=== PATIENT | female | born 1990 | race Hispanic/Latino ===

== ENCOUNTER 2020-04-18 14:35 | Emergency (ER) | payer SELFPAY ==
[2020-04-18] MEDS ORDERED: CEFTRIAXONE/SWI 1gm 1 GM/10 ML SYR ONE (15:34)
[2020-04-18] MEDS ORDERED: NA CHLORIDE 0.9% 1,000 ML ONE (15:34)
[2020-04-18 15:35] LABS: Absolute Lymphocytes (CBC) 0.9 K/uL (0.7-4.9); Basophils % 0.5 % (0-1.3); Hematocrit 37.7 % (36.0-45.0); Lymphocytes % 12.2 % (15.3-44.8); MPV 8.7 fL (7.6-11.3); RBC Red Blood Cell Count 4.48 M/uL (3.86-4.86)
[2020-04-18 15:53] LABS: BUN Blood Urea Nitrogen 9 mg/dL (7-18); Bicarbonate 28 mmol/L (21-32); Glucose Level 89 mg/dL (74-106); Potassium 3.7 mmol/L (3.5-5.1); Sodium Level 137 mmol/L (136-145)
--- NOTE | 2020-04-18 16:01 | RAD REPORT ---
EXAM DESCRIPTION: CTAbdomen Pelvis W Contrast - 04/18/2020 3:51 pm CLINICAL HISTORY: Abdominal pain. pyelonephritis COMPARISON: No comparisons TECHNIQUE: Biphasic CT imaging of the abdomen and pelvis was performed with 100 ml non-ionic IV cont rast. All CT scans are performed using dose optimization technique as appropriate and may include automated exposure control or mA/KV adjustment according to patient size. FINDINGS: The lung bases are clear.Small hiatal hernia. The liver, spleen, pancreas, adrenal glands and kidneys are within normal limits. Cholelithiasis. No bowel obstruction, free air, free fluid or abscess. The appendix is normal. No evidence of signi ficant lymphadenopathy. No suspicious bony findings. IMPRESSION: Cholelithiasis.
[2020-04-18 16:10] LABS: Urine Bacteria >50 /HPF (<20); Urine Culture Reflex Order NOT NEEDED
--- NOTE | 2020-04-18 16:13 | ER ---
Nurse's Notes [facility] Name: Heather Irvin Age: 29 yrs Sex: Female : 1990 Arrival Date: 04/18/2020 Time: 14:39 Bed 5 Private MD: Diagnosis: Urinary tract infection, site not specified Presentation: 04/18 14:51 Chief complaint: Patient states: low back pain, chills, burning with urination and ss blood in urine that began yesterday. Coronavirus screen: Client denies travel out of the [place] in the last 14 days. Ebola Screen: Patient denies exposure to infectious person. Patient denies travel to an Ebola-affected area in the 21 days before illness onset. Initial Sepsis Screen: Does the patient meet any 2 criteria? No. Patient's initial sepsis screen is negative. Does the patient have a suspected source of infection? No. Patient's initial sepsis screen is negative. Risk Assessment: Do you want to hurt yourself or someone else? Patient reports no desire to harm self or others. Onset of symptoms was April 17, 2020. 14:51 Method Of Arrival: Ambulatory ss 14:51 Acuity: SHAHBAZ 3 ss NURSE WOUND CARE: 16:42 LMP 04/07/2020 ll2 Historical: - Allergies: 14:53 No Known Allergies; ss - Home Meds: 14:53 None [Active]; ss - PMHx: 14:53 None; ss - PSHx: 14:53 None; ss - Immunization history:: Adult Immunizations up to date. - Social history:: Smoking status: Patient denies any tobacco usage or history of. Screenin:33 Abuse screen: Denies threats or abuse. Nutritional screening: No deficits noted. ll2 Tuberculosis screening: No symptoms or risk factors identified. Fall Risk IV access (20 points). Ambulatory Aid- None/Bed Rest/Nurse Assist (0 pts). Gait- Normal/Bed Rest/Wheelchair (0 pts) Mental Status- Oriented to own ability (0 pts). Total Holden Fall Scale indicates No Risk (0-24 pts). Assessment: 15:30 General: Appears in no apparent distress. Behavior is calm, cooperative, appropriate ll2 for age. Pain: Complains of pain in right low back Pain at worst was 10 out of 10 on a pain scale. Quality of pain is described as aching, radiating, Pain began 2-3 days ago. Is continuous, Alleviated by rest. Neuro: Level of Consciousness is awake, alert, obeys commands, Oriented to person, place, time, situation. Cardiovascular: Capillary refill < 3 seconds Patient's skin is warm and dry. Respiratory: Airway is patent Respiratory effort is even, unlabored, Respiratory pattern is regular, symmetrical. GI: Abd is soft X 4 quads Reports lower abdominal pain. : Reports burning with urination, since last 4 days urgency, urinary frequency. EENT: No signs and/or symptoms were reported regarding the EENT system. Derm: Skin is intact, is healthy with good turgor, Skin is dry, Skin is pink, warm \T\ dry. Skin temperature is warm. Musculoskeletal: Circulation, motion, and sensation intact. Range of motion: intact in all extremities. Vital Signs: 14:51 BP 133 / 98; Pulse 99; Resp 14; Temp 99.7(TE); Pulse Ox 99% on R/A; Weight 99.79 kg; ss Height 5 ft. 6 in. (167.64 cm); Pain 2/10; 15:33 BP 127 / 90; Pulse 86; Resp 15; Temp 99; Pulse Ox 100% on R/A; Pain 4/10; ll2 16:00 BP 124 / 80; Pulse 94; Resp 14; Temp 98.9; Pulse Ox 99% on R/A; ll2 14:51 Body Mass Index 35.51 (99.79 kg, 167.64 cm) ED Course: 14:39 Patient arrived in ED. mr 14:52 Triage completed. ss 14:53 Arm band placed on right wrist. ss 15:04 Sheryl Caldera FNP-C is PHCP. kb 15:04 Nick Blanton MD is Attending Physician. kb 15:20 Nabeel Dinero, SARAH is Primary Nurse. ll1 15:25 Initial lab(s) drawn, by me, sent to lab. Inserted saline lock: 20 gauge in right kj1 antecubital area, using aseptic technique. Blood collected. 15:51 CT Abd/Pelvis - IV Contrast Only In Process Unspecified. EDMS 15:59 Patient has correct armband on for positive identification. Bed in low position. Call ll2 light in reach. Side rails up X 1. 16:05 CT completed. pt became nauseous \T\ threw up post ct exam. pt did stated she ate a bq tortilla prior to going to the er. Patient moved back from CT. 16:42 No provider procedures requiring assistance completed. IV discontinued, intact, ll2 bleeding controlled, No redness/swelling at site. Pressure dressing applied. Administered Medications: 15:35 Drug: NS 0.9% 1000 ml Route: IV; Rate: 1000 ml; Site: right antecubital; ll2 15:35 Drug: Rocephin 1 grams Route: IV; Rate: calculated rate; Site: right antecubital; ll2 Outcome: 16:12 Discharge ordered by MD. kb 16:31 Patient left the ED. ll1 16:31 Discharged to home ambulatory. ll2 16:31 Condition: stable 16:31 Discharge instructions given to patient, Instructed on discharge instructions, follow up and referral plans. medication usage, Demonstrated understanding of instructions, follow-up care, medications, Prescriptions given X 2. Addendum: 04/21/2020 11:16 Addendum: Culture Results: Positive urine culture. No further action required. Bacteria s s sensitive to prescribed antibiotic. Signatures: Dispatcher [employer] EDMS Sheryl Caldera, ANALYTICS DIRECTOR-C ANALYTICS DIRECTOR-Ckb Paola Russ Betty Demi Huffman RN RN ss Jackson, Kandis kj1 Lorie Gooden RN RN ll2 Nabeel Dinero RN RN ll1 Corrections: (The following items were deleted from the chart) 04/18 16:44 16:42 Discharged to home ambulatory, ll2 ll2 16:44 16:42 Condition: stable ll2 ll2 16:44 16:42 Discharge instructions given to patient, Instructed on discharge instructions, ll2 follow up and referral plans. medication usage, Demonstrated understanding of instructions, follow-up care, medications, Prescriptions given X 2, ll2
--- NOTE | 2020-04-18 16:13 | EDPHYS ---
Physician Documentation [facility] Name: Heather Irvin Age: 29 yrs Sex: Female : 1990 Arrival Date: 04/18/2020 Time: 14:39 Bed 5 Private MD: ED Physician Nick Blanton HPI: 04/18 15:39 This 29 yrs old Female presents to ER via Ambulatory with complaints of Back kb Pain, Urinary Problem. 15:39 The patient presents with urinary symptoms, dysuria, frequency, hematuria. Onset: The kb symptoms/episode began/occurred 4 day(s) ago. Modifying factors: The symptoms are alleviated by nothing, the symptoms are aggravated by urinating. Associated signs and symptoms: Pertinent positives: dysuria, fever, hematuria, urinary frequency. Severity of symptoms: At their worst the symptoms were moderate, in the emergency department the symptoms are unchanged. The patient has not experienced similar symptoms in the past. The patient has not recently seen a physician. Pt reports she started having frequency and dysuria 4 days ago. Since then those symptoms have gotten worse and now she has fever, chills, flank pain, and hematuria. 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 - Social history:: Smoking status: Patient denies any tobacco usage or history of. ROS: 15:38 Cardiovascular: Negative for chest pain, palpitations, and edema, Respiratory: Negative kb for shortness of breath, cough, wheezing, and pleuritic chest pain, Abdomen/GI: Negative for abdominal pain, nausea, vomiting, diarrhea, and constipation, MS/Extremity: Negative for injury and deformity, Skin: Negative for injury, rash, and discoloration, Neuro: Negative for headache, weakness, numbness, tingling, and seizure. 15:38 Constitutional: Positive for chills, fever, malaise. 15:38 : Positive for urinary symptoms, flank pain, urinary frequency, hematuria, burning with urination. Exam: 15:38 Constitutional: This is a well developed, well nourished patient who is awake, alert, kb and in no acute distress. Head/Face: Normocephalic, atraumatic. Chest/axilla: Normal chest wall appearance and motion. Nontender with no deformity. No lesions are appreciated. Cardiovascular: Regular rate and rhythm with a normal S1 and S2. No gallops, murmurs, or rubs. Normal PMI, no JVD. No pulse deficits. Respiratory: Lungs have equal breath sounds bilaterally, clear to auscultation and percussion. No rales, rhonchi or wheezes noted. No increased work of breathing, no retractions or nasal flaring. Abdomen/GI: Soft, non-tender, with normal bowel sounds. No distension or tympany. No guarding or rebound. No evidence of tenderness throughout. Skin: Warm, dry with normal turgor. Normal color with no rashes, no lesions, and no evidence of cellulitis. MS/ Extremity: Pulses equal, no cyanosis. Neurovascular intact. Full, normal range of motion. Neuro: Awake and alert, GCS 15, oriented to person, place, time, and situation. Cranial nerves II-XII grossly intact. Motor strength 5/5 in all extremities. Sensory grossly intact. Cerebellar exam normal. Normal gait. 15:38 Back: CVA tenderness, that is mild, is noted on the right. Vital Signs: 14:51 BP 133 / 98; Pulse 99; Resp 14; Temp 99.7(TE); Pulse Ox 99% on R/A; Weight 99.79 kg; ss Height 5 ft. 6 in. (167.64 cm); Pain 2/10; 15:33 BP 127 / 90; Pulse 86; Resp 15; Temp 99; Pulse Ox 100% on R/A; Pain 4/10; ll2 16:00 BP 124 / 80; Pulse 94; Resp 14; Temp 98.9; Pulse Ox 99% on R/A; ll2 14:51 Body Mass Index 35.51 (99.79 kg, 167.64 cm) ss MDM: 15:12 Patient medically screened. kb 15:38 Data reviewed: vital signs, nurses notes. Data interpreted: Pulse oximetry: on room air kb is 100 %. Interpretation: normal. 16:06 Counseling: I had a detailed discussion with the patient and/or guardian regarding: the kb historical points, exam findings, and any diagnostic results supporting the discharge/admit diagnosis, lab results, radiology results, the need for outpatient follow up, a family practitioner, to return to the emergency department if symptoms worsen or persist or if there are any questions or concerns that arise at home. 04/18 15:09 Order name: Urine Dipstick--Ancillary (enter results); Complete Time: 16:28 eb 04/18 15:09 Order name: Urine --Ancillary (enter results); Complete Time: 16:28 eb 04/18 15:09 Order name: Urine Culture eb 04/18 15:09 Order name: Urine Microscopic Only; Complete Time: 16:12 eb 04/18 15:17 Order name: Basic Metabolic Panel; Complete Time: 15:54 kb 04/18 15:17 Order name: CBC with Diff; Complete Time: 15:42 kb 04/18 14:57 Order name: Urine Dipstick-Ancillary (obtain specimen); Complete Time: 15:11 ss 04/18 14:57 Order name: Urine Test (obtain specimen); Complete Time: 15:11 ss 04/18 15:17 Order name: IV Saline Lock; Complete Time: 15:36 kb 04/18 15:17 Order name: Labs collected and sent; Complete Time: 15:36 kb 04/18 15:17 Order name: CT Abd/Pelvis - IV Contrast Only; Complete Time: 16:05 kb Administered Medications: 15:35 Drug: NS 0.9% 1000 ml Route: IV; Rate: 1000 ml; Site: right antecubital; ll2 15:35 Drug: Rocephin 1 grams Route: IV; Rate: calculated rate; Site: right antecubital; ll2 Disposition: 04/19 10:52 Co-signature as Attending Physician, Nick Blanton MD I agree with the assessment and leah plan of care. Disposition: 04/18/20 16:12 Discharged to Home. Impression: Urinary tract infection, site not specified. - Condition is Stable. - Discharge Instructions: Urinary Tract Infection, Adult, [id number]. - Prescriptions for Pyridium 200 mg Oral Tablet - take 1 tablet by ORAL route every 8 hours for 3 days; 9 tablet. Macrobid 100 mg Oral Capsule - take 1 capsule by ORAL route every 12 hours for 10 days; 20 capsule. - Medication Reconciliation Form, Thank You Letter, Antibiotic Education, Prescription Opioid Use form. - Follow up: Emergency Department; When: As needed; Reason: Worsening of condition. Follow up: Private Physician; When: 2 - 3 days; Reason: Recheck today's complaints, Continuance of care, Re-evaluation by your physician. Signatures: Dispatcher [employer] EDGA Sheryl Caldera, RAUDEL HODGES-Nick Sánchez MD MD cha Smirch, Shelby, RN RN ss Lorie Gooden RN RN ll2 Nabeel Dinero RN RN ll1 Corrections: (The following items were deleted from the chart) 04/18 16:31 16:12 04/18/2020 16:12 Discharged to Home. Impression: Urinary tract infection, site ll1 not specified. Condition is Stable. Forms are Medication Reconciliation Form, Thank You Letter, Antibiotic Education, Prescription Opioid Use. Follow up: Emergency Department; When: As needed; Reason: Worsening of condition. Follow up: Private Physician; When: 2 - 3 days; Reason: Recheck today's complaints, Continuance of care, Re-evaluation by your physician. kb
[2020-04-18 16:27] LABS: Urine Blood 1+ (NEG); Urine Glucose NEGATIVE (NEG); Urine Protein 2+ (NEG); Urine Specific Gravity 1.015 (1.005-1.030)
[2020-04-18 16:54] VITALS: BP 127/90; TEMP 99; O2SAT 100
== END 2020-04-18 16:31 | disposition home or self-care (01) ==
LOC: ER 14:35
DX: N39.0 Urinary tract infection, site not specified (principal)
CPT/HCPCS: 36415; 74177; 80048; 81003; 81015; 81025; 85025; 87077; 87086; 87088; 87186; 96374; 99284; J0696; J7030; Q9967